=== PATIENT | female | born 1985 | race Two or more races ===

== ENCOUNTER 2020-06-09 13:20 | Emergency (ER) | payer OTHER, MEDICAID ==
[~2020-06-09] VITALS: Ht 170.2 cm; Wt 79.4 kg
[2020-06-09] MEDS ORDERED: ONDANSETRON HCL 4 MG/2 ML VIAL IV ONE (13:45)
[2020-06-09] MEDS ORDERED: SODIUM CHLORIDE 0.9% 1,000 ML IVB ONE (13:45)
[2020-06-09] MEDS ORDERED: KETOROLAC TROMETH 30 MG/ML 1ML VIAL IV ONE (13:45)
[2020-06-09] MEDS: LORazepam 2MG/ML-1ML VIAL IV ONE (14:15)
[2020-06-09 14:32] LABS: Basophils # (auto) 0 10 ^3/uL (0-0.2); Basophils % (auto) 0.3 % (0.0-2.0); Eosinophils # (auto) 0 10 ^3/uL (0-0.8); Eosinophils % (auto) 0.2 % (0.0-7.0); Hemoglobin 12.6 g/dL (12.2-16.2); Lymphocytes # (auto) 1.2 10 ^3/uL (0.4-5.4); Mean Corpuscular Hemoglobin 29.1 pg (28.0-32.0); Mean Corpuscular Hgb Conc. 33.9 g/dL (32.0-36.0); Mean Corpuscular Volume 85.7 fL (80.0-100.0); Monocytes # (auto) 0.6 10 ^3/uL (0-1.3); Monocytes % (auto) 5.1 % (0.0-12.0); Neutrophils # (auto) 9.2 10 ^3/uL (1.6-8.6); Neutrophils % (auto) 83.4 % (37.0-80.0); Platelet Count (auto) 406 10^3/uL (140-450); Red Blood Cells 4.32 10^6/uL (4.0-5.20); Red Cell Distribution Width 13.2 % (11.8-14.3)
[2020-06-09 14:53] LABS: Calcium 9.2 mg/dL (8.5-10.1); Potassium 3.4 mmol/L (3.5-5.1)
[2020-06-09 14:58] LABS: BUN/Creatinine Ratio 13.3; Bilirubin, Total 0.3 mg/dL (0.2-1.0); Total Protein 8.3 g/dL (6.4-8.2)
[2020-06-09 16:14] LABS: Alcohol, Urine < 3.0 mg/dL (0-10); Amphetamine Screen, Urine POSITIVE (NEGATIVE); Barbiturate Scree,Urine NEGATIVE (NEGATIVE); Benzodiazephine Screen, Urine NEGATIVE (NEGATIVE); Cannabinoid Screen, Urine POSITIVE (NEGATIVE); Cocaine Screen, Urine NEGATIVE (NEGATIVE); Phencyclidine Screen, Urine NEGATIVE (NEGATIVE)
[2020-06-09 16:21] LABS: Opiate Scree,Urine NEGATIVE (NEGATIVE)
[2020-06-09 16:22] LABS: Urine Bacteria FEW /hpf (None Seen); Urine Blood 3+ /uL (Negative); Urine Mucus FEW (None Seen); Urine Specific Gravity 1.016 (1.001-1.035); Urine WBC 231 /hpf (0 - 5)
[2020-06-09] MEDS ORDERED: cefTRIAXone 1GM/50ML D5W 50 ML IV ONE (16:30)
[2020-06-09 17:10] VITALS: BP 112/69
== END 2020-06-09 17:10 | disposition home or self-care (01) ==
LOC: ER 13:20
DX: N12 Tubulo-interstitial nephritis, not specified as acute or chronic (principal); F15.10 Other stimulant abuse, uncomplicated; F17.210 Nicotine dependence, cigarettes, uncomplicated; F12.10 Cannabis abuse, uncomplicated; Z32.02 Encounter for pregnancy test, result negative
CPT/HCPCS: 36415; 74176; 80053; 80307; 81001; 81025; 83690; 85025; 96361; 96365; 96375; 99284; J0696; J1885; J2060; J2405; J7030